=== PATIENT | male | born 1965 ===

== ENCOUNTER 2017-06-15 07:22 | Day surgery (SDC) | payer OTHER ==
[~2017-06-15] VITALS: Ht 180.3 cm; Wt 137.2 kg
[2017-06-15 08:06] VITALS: BP 137/82; PULSE 57; TEMP 97.9
[2017-06-15] MEDS ORDERED: NORCO 325 MG-7.1 TAB PO (08:16)
[2017-06-15 12:40] VITALS: BP 111/56; PULSE 93; TEMP 99.1
[2017-06-15 12:55] VITALS: BP 106/66; PULSE 93
[2017-06-15 13:10] VITALS: BP 127/55; PULSE 84
[2017-06-15 13:25] VITALS: BP 129/70; PULSE 79
[2017-06-15] MEDS ORDERED: ASPIRIN 32325 MG/TAB PO (16:22)
== END 2017-06-15 14:56 | disposition home or self-care (01) ==
LOC: SDCO 07:22
DX: M94.8X6 Other specified disorders of cartilage, lower leg (principal); M23.321 Other meniscus derangements, posterior horn of medial meniscus, right knee; M17.11 Unilateral primary osteoarthritis, right knee; E66.01 Morbid (severe) obesity due to excess calories; Z68.41 Body mass index [BMI] 40.0-44.9, adult
CPT/HCPCS: J0360; J0690; J1100; J1170; J1885; J2405; J2704; J7120